=== PATIENT | male | born 1965 | race Caucasian/White ===

== ENCOUNTER 2019-05-16 13:13 | Emergency (ER) | payer OTHER ==
[~2019-05-16] VITALS: Ht 177.8 cm; Wt 86.2 kg
== END 2019-05-16 16:23 | disposition home or self-care (01) ==
LOC: ER 13:13
DX: S42.291A Other displaced fracture of upper end of right humerus, initial encounter for closed fracture (principal); X50.3XXA Overexertion from repetitive movements, initial encounter; Y93.89 Activity, other specified; Y92.832 Beach as the place of occurrence of the external cause; Y99.8 Other external cause status